=== PATIENT | male | born 1995 | race African-American/Black ===

== ENCOUNTER 2017-07-12 17:35 | Emergency (ER) | payer OTHER ==
[2017-07-12] MEDS: AZITHROMYCIN 250 MG TAB PO (18:18)
[2017-07-12] MEDS: cefTRIAXone SOD 250 MG VIAL (J0696) IM (18:18)
[2017-07-12 20:31] LABS: CHLAMYDIA DNA AMPLIFICATION NEGATIVE (NEGATIVE); GC DNA AMPLIFICATION NEGATIVE (NEGATIVE)
== END 2017-07-12 18:56 | disposition home or self-care (01) ==
LOC: M ED 17:35
DX: Z20.2 Contact with and (suspected) exposure to infections with a predominantly sexual mode of transmission (principal); Z87.891 Personal history of nicotine dependence
CPT/HCPCS: J0696

== ENCOUNTER → 2017-08-05 | Outpatient (REF) | payer OTHER ==
[2017-08-05 22:00] LABS: CHLAMYDIA DNA AMPLIFICATION NEGATIVE (NEGATIVE); GC DNA AMPLIFICATION NEGATIVE (NEGATIVE)
== END ==
LOC: M SFHCLERA 17:32
DX: Z20.2 Contact with and (suspected) exposure to infections with a predominantly sexual mode of transmission (principal)

== ENCOUNTER → 2017-08-23 | Outpatient (REF) | payer OTHER | LOC: M SFHCLERA 18:25 | DX: R53.81 Other malaise (principal) ==

== ENCOUNTER 2017-11-23 19:41 | Emergency (ER) | payer OTHER ==
[2017-11-23] MEDS: ONDANSETRON 4 MG ORAL DISINTEGRATING TAB (Q0162 PER 1MG) PO (22:30)
[2017-11-23] MEDS: KETOROLAC 60 MG/2 ML VIAL (J1885) IM (22:30)
== END 2017-11-23 23:01 | disposition home or self-care (01) ==
LOC: M ED 19:41
DX: R51 Headache (principal); R11.0 Nausea
CPT/HCPCS: Q0162

== ENCOUNTER 2018-01-30 21:35 | Emergency (ER) | payer OTHER ==
[2018-01-30] MEDS: NS 1,000 ML IV (22:39)
[2018-01-30] MEDS: KETOROLAC 30 MG/ML VIAL (J1885) IV (22:40)
== END 2018-01-30 23:37 | disposition home or self-care (01) ==
LOC: M ED 21:35
DX: F43.20 Adjustment disorder, unspecified (principal); R06.4 Hyperventilation
CPT/HCPCS: J1885

== ENCOUNTER → 2019-02-16 | Outpatient (REF) | payer OTHER ==
[2019-02-16 18:52] LABS: CHLAMYDIA DNA AMPLIFICATION NEGATIVE (NEGATIVE); GC DNA AMPLIFICATION NEGATIVE (NEGATIVE)
[2019-02-21 00:06] LABS: HSV TYPE I IgM AB <1:10 titer (<1:10); HSV TYPE II IgG SPECIFIC 6.11 index (0.00-0.90); HSV TYPE II IgM ABY <1:10 titer (<1:10)
== END ==
LOC: M SFHCLERA 11:51
PROVIDERS: ATTEND Physician Assistant
DX: Z20.9 Contact with and (suspected) exposure to unspecified communicable disease (principal); A60.02 Herpesviral infection of other male genital organs

== ENCOUNTER → 2019-04-21 | Outpatient (REF) | payer OTHER ==
[2019-04-21 21:15] LABS: CHLAMYDIA DNA AMPLIFICATION NEGATIVE (NEGATIVE); GC DNA AMPLIFICATION NEGATIVE (NEGATIVE)
== END ==
LOC: M SFHCLERA 14:11
PROVIDERS: ATTEND Nurse Practitioner Family
DX: Z11.3 Encounter for screening for infections with a predominantly sexual mode of transmission (principal)